=== PATIENT | female | born 1970 | race Caucasian/White ===

== ENCOUNTER 2019-01-13 02:28 | Emergency (ER) ==
[2019-01-13 02:37] VITALS: BP 110/71; TEMP 99.5; BMI 24.8
[2019-01-13] MEDS ORDERED: SOLU-MEDROL 125 MG IVP STA (02:53)
[2019-01-13] MEDS ORDERED: ROCEPHIN 1 GM PREMIX 1 GM in PREMIX 50 ML D5W 1 BAG IV STA (02:53)
[2019-01-13] MEDS ORDERED: XOPENEX 1.25 MG NEB STA (02:54)
[2019-01-13] MEDS ORDERED: DUONEB NEB STA (02:54)
[2019-01-13] MEDS ORDERED: ALBUTEROL 0.042% NEB NEB STA (02:55)
[2019-01-13] MEDS ORDERED: ROCEPHIN 1 GM PREMIX 50 ML IV ONE (03:07)
--- NOTE | 2019-01-13 05:43 | CT ---
EXAM: CT angiogram of the chest with intravenous contrast 01/13/2019. Multi planar reformatted imag es obtained. MIP and three-dimensional reconstructed images provided HISTORY: Dyspnea COMPARISON: None. FINDINGS: The heart size appears within normal limits. No pericardial effusion. The thoracic aorta shows no acute abnormality. There are no pulmonary arterial filling defects to suggest pulmonary embolus. There is suggestion of bronchial wall thickening. Correlate for bronchitis/bronchiolitis. Right mid dle lobe atelectasis and/or pneumonitis. There is no pulmonary consolidation, effusion or pneumothorax. Limited views of the upper abdomen show no acute process. IMPRESSION: 1. No evidence of pulmonary embolus. 2. There is suggestion of diffuse bronchial wall thickening. Correlate for bronchitis/ bronchioliti s 3. Right middle lobe atelectasis and/or pneumonitis. 4. No pulmonary consolidation, effusion or pneumothorax.
--- NOTE | 2019-01-13 05:57 | ED.PDOC ---
General ED Provider: Dr. ALISA CHERRY-ER Chief Complaint: Shortness of Air Stated Complaint: i have ashmta aNd i am wheezing and sob--coughihg up green stuff Time Seen by Physician: 02:40 Mode of Arrival: Walk-In Information Source: Patient Exam Limitations: No limitations Nursing and Triage Documentation Reviewed and Agree: Yes Does patient meet sepsis criteria?: No System Inflammatory Response Syndrome: Not Applicable Sepsis Protocol: For patient's 13 years and over: Temp is 96.8 and below OR 101 and greater Pulse >90 BPM Resp >20/minute Acutely Altered Mental Status Are patient's symptoms suggestive of a new infection, such as: -Pneumonia -Skin, Soft Tissue -Endocarditis -UTI -Bone, Joint Infection -Implantable Device -Acute Abdominal Infection -Wound Infection -Meningitis -Blood Stream Catheter Infection -Unknown Respiratory Complaint Exam - Respiratory Complaint/Exam Onset/Duration: 1 week Symptoms Are: Still present Timing: Constant Initial Severity: Mild Current Severity: Moderate Location: Chest Character: Reports: Productive cough Aggravating: Reports: URI Alleviating: Reports: Bronchodilators Associated Signs and Symptoms: Reports: Wheezing, URI. Denies: Rapid breathing , Dyspnea, Fever, Chills, Chest pain, Pleuritic chest pain, Hemoptysis, Dizziness, Calf pain History of Healthcare-Acquired Pneumonia: No Status Asthmaticus Risk Factors: Reports: None Home Oxygen Use: No Recent Stress Test: No Recent Echo/LV Function: No Current Antibiotic Use: No Current Asthma Medication Use: Yes Respiratory Distress: None Inadequate Respiratory Effort: No Dysphagia Present: No Stridor Present: No JVD Present: No Accessory Muscle Use: No Retractions: Not Present Diminished Breath Sounds: No Prolonged Respiration: Expiratory phase Sinus Tenderness: None Grunting Respirations: No Kussmaul Respirations: No Differential Diagnoses: Asthma, Pneumonia, Bronchitis Review of Systems - Review Of Systems Constitutional: Reports: No symptoms Eyes: Reports: No symptoms Ears, Nose, Mouth, Throat: Reports: No symptoms Respiratory: Reports: Cough, Short of air, Wheezing Cardiac: Reports: No symptoms GI: Reports: Blood streaked bowels : Reports: No symptoms Musculoskeletal: Reports: No symptoms Skin: Reports: No symptoms Neurological: Reports: No symptoms Endocrine: Reports: No symptoms Hematologic/Lymphatic: Reports: No symptoms All Other Systems: Reviewed and Negative Past Medical History - Past Medical History Previously Healthy: Yes Endocrine: Reports: Unknown Cardiovascular: Reports: Unknown Respiratory: Reports: Asthma Hematological: Reports: Unknown Gastrointestinal: Reports: Unknown Genitourinary: Reports: Unknown Neuro/Psych: Reports: Unknown Musculoskeletal: Reports: Unknown Cancer: Reports: Unknown Last Menstrual Period: PT HAS HAD A HYSTERECTOMY 2018 - Surgical History General Surgical History: Reports: Hysterectomy - Family History Family History: Reports: Unknown - Social History Smoking Status: Never smoker Hx Substance Use: No Alcohol Screening: Occasionally - Immunizations Tetanus Shot up to Date: Yes Physical Exam - Physical Exam Appearance: Well-appearing, No pain distress, Well-nourished Eyes: REBECCA, EOMI, Conjunctiva clear ENT: Ears normal, Nose normal, Oropharynx normal Neck: Supple Respiratory: Wheezes Cardiovascular: RRR, Pulses normal, No rub, No murmur GI/: Soft, Nontender, No masses, Bowel sounds normal, No Organomegaly Musculoskeletal: Normal strength, ROM intact, No edema, No calf tenderness Skin: Warm, Dry, Normal color Neurological: Sensation intact, Motor intact, Reflexes intact, Cranial nerves intact, Alert, Oriented Psychiatric: Affect appropriate, Mood appropriate, Anxious Interpretation - Radiology Interpretation Radiology Interpretation By: Radiologist Radiology Results: Positive Exam Interpreted: CT Scan - EKG Interpretation Time of EKG #1: 05:57 Rate: Normal Rhythm: Sinus Ectopy: None [place]: NL ST Segment: Normal Interpretation: nsr Re-Evaluation - Re-Evaluation Time of Re-Evaluation: 05:57 Status: Improved Vital Signs Stable: Yes Pain Level: none Appearance: NAD Lungs: Clear Skin: Warm and Dry Neuro: Alert and Oriented X3 CV: RRR Additional Comments: wheezing rsolved Critical Care Note - Critical Care Note Total Time (mins): 0 Course - Course Hematology/Chemistry: 01/13/19 03:08 01/13/19 03:08 Orders, Labs, Meds: Lab Review 01/13/19 01/13/19 01/13/19 02:52 03:08 03:08 WBC 13.08 H RBC 4.31 Hgb 13.0 Hct 39.4 MCV 91.4 MCH 30.2 MCHC 33.0 RDW Coeff of Jason 13.7 Plt Count 373 Immature Gran % (Auto) 0.3 Neut % (Auto) 49.6 Lymph % (Auto) 29.1 [place] % (Auto) 4.6 Eos % (Auto) 15.6 H Baso % (Auto) 0.8 Immature Gran # (Auto) 0.0 Neut # (Auto) 6.5 Lymph # (Auto) 3.8 H [place] # (Auto) 0.6 Eos # (Auto) 2.0 H Baso # (Auto) 0.1 Puncture Site Lr O2 Saturation 99.0 ABG pH 7.451 H ABG pCO2 30.3 L ABG pO2 116.0 H ABG HCO3 21.1 L ABG Total CO2 22 ABG Base Excess -3 L Efren Test + FiO2 % 21.0 Sodium 141.5 Potassium 4.09 Chloride 105.7 Carbon Dioxide 24.9 Anion Gap 14.99 BUN 12.6 Creatinine 0.90 Estimated GFR (MDRD) 67.00 BUN/Creatinine Ratio 14.00 Glucose 99.2 Calcium 8.89 Total Bilirubin 0.48 AST 21.0 ALT 14.3 Alkaline Phosphatase 78.4 NT-Pro-B Natriuret Pep Total Protein 7.19 Albumin 4.21 Globulin 2.98 Albumin/Globulin Ratio 1.41 01/13/19 03:08 WBC RBC Hgb Hct MCV MCH MCHC RDW Coeff of Jason Plt Count Immature Gran % (Auto) Neut % (Auto) Lymph % (Auto) [place] % (Auto) Eos % (Auto) Baso % (Auto) Immature Gran # (Auto) Neut # (Auto) Lymph # (Auto) [place] # (Auto) Eos # (Auto) Baso # (Auto) Puncture Site O2 Saturation ABG pH ABG pCO2 ABG pO2 ABG HCO3 ABG Total CO2 ABG Base Excess Efren Test FiO2 % Sodium Potassium Chloride Carbon Dioxide Anion Gap BUN Creatinine Estimated GFR (MDRD) BUN/Creatinine Ratio Glucose Calcium Total Bilirubin AST ALT Alkaline Phosphatase NT-Pro-B Natriuret Pep 28.100 Total Protein Albumin Globulin Albumin/Globulin Ratio Orders Category Date Time Status ABG DRAW REQUEST Stat CARDIO 01/13/19 02:53 Completed EKG-(ED ONLY) Stat CARDIO 01/13/19 02:53 Completed NEBULIZER TREATMENT Stat CARDIO 01/13/19 02:54 Completed NPO REMINDER: IMAGING ONCE CARE 01/13/19 02:56 Completed ED MANAGER STRATEGY APPLIED .ONCE EMERGENCY 01/13/19 02:53 Active ED IV/MEDIPORT/POWERPORT .ONCE EMERGENCY 01/13/19 02:53 Active ABG Stat LAB 01/13/19 02:52 Completed CBC W/ AUTO DIFF Stat LAB 01/13/19 03:08 Completed COMPREHENSIVE METABOLIC PANEL Stat LAB 01/13/19 03:08 Completed PRO-BNP [NT-PROBNP] Stat LAB 01/13/19 03:08 Completed 0.9 % Sodium Chloride [Saline Flush] MEDS 01/13/19 02:52 Ordered 1 syr IVF PRN PRN Albuterol Sulfate 0.042% Neb [Albuterol 0.042% Neb] MEDS 01/13/19 02:55 Discontinued 1 vial NEB ONCE STA Ceftriaxone/Dextrose,Iso Osm [Rocephin 1 gm Premix] 1 MEDS 01/13/19 02:53 Discontinued gm Premix 50 ml D5w 1 bag IV ONCE Ceftriaxone/Dextrose,Iso Osm [Rocephin 1 gm Premix] 50 MEDS 01/13/19 03:07 Discontinued ml IV .STK-MED Ipratropium/Albuterol Neb [Duoneb] MEDS 01/13/19 02:54 Discontinued 1 vial NEB ONCE STA Levalbuterol HCl [Xopenex 1.25 mg] MEDS 01/13/19 02:54 Discontinued 1 vial NEB ONCE STA Methylprednisolone Sod Succ/Pf [Solu-Medrol 125 mg] MEDS 01/13/19 02:53 Discontinued 125 [address] IVP ONCE STA CT CHEST PE PROTOCOL Stat RADS 01/13/19 02:55 Completed Medications Generic Name Dose Route Start Last Admin Trade Name Freq PRN Reason Stop Dose Admin Sodium Chloride 1 syr 01/13/19 02:52 01/13/19 03:28 Saline Flush IVF 1 syr PRN PRN Administration To flush IV Discontinued Medications Generic Name Dose Route Start Last Admin Trade Name Freq PRN Reason Stop Dose Admin Albuterol Sulfate 1 vial 01/13/19 02:55 01/13/19 03:43 Albuterol 0.042% Neb NEB 01/13/19 02:56 1 vial ONCE STA Administration Albuterol/Ipratropium 1 vial 01/13/19 02:54 01/13/19 03:20 Duoneb NEB 01/13/19 02:55 1 vial ONCE STA Administration CEFTRIAXONE/DEXTROSE,ISO OSM 1 50 mls @ 75 mls/hr 01/13/19 02:53 01/13/19 03: 31 gm/ Dextrose IV 01/13/19 03:32 75 mls/hr ONCE STA Administration Levalbuterol HCl 1 vial 01/13/19 02:54 01/13/19 03:31 Xopenex 1.25 Mg NEB 01/13/19 02:55 1 vial ONCE STA Administration Methylprednisolone Sodium Succinate 125 mg 01/13/19 02:53 01/13/19 03:26 Solu-Medrol 125 Mg IVP 01/13/19 02:54 125 mg ONCE STA Administration Vital Signs: Temp Pulse Resp BP Pulse Ox 01/13/19 02:30 99.5 F 85 20 110/71 93 L Departure - Departure Time of Disposition: 05:58 Disposition: HOME SELF-CARE Discharge Problem: Asthma Qualifiers: Asthma severity: moderate Asthma persistence: persistent Asthma complication type: with acute exacerbation Qualified Code(s): J45.41 - Moderate persistent asthma with (acute) exacerbation Pneumonia Qualifiers: Pneumonia type: due to unspecified organism Laterality: right Lung location: middle lobe of lung Qualified Code(s): J18.1 - Lobar pneumonia, unspecified organism Instructions: Pneumonitis (ED) Condition: Good Pt referred to PMD for follow-up: No IPMP verified?: No Additional Instructions: go ahead and establish herself with local practioner Allergies/Adverse Reactions: Allergies aspirin Adverse Reaction (Verified 01/13/19 02:37) Swelling Home Medications: Ambulatory Orders Albuterol Sulfate 0.083% Neb [Albuterol 0.083% Neb] 1 vial NEB RTQ4H PRN Albuterol Sulfate [Albuterol Sulfate Hfa] 2 inh IH Q4H PRN 01/13/19 Amoxicillin/Potassium Clav [Augmentin 875-125 mg Tab] 1 tab PO Q12HR #20 tablet 01/13/19 Cetirizine HCl [Zyrtec] 10 mg PO DAILY PRN 01/13/19 Dextroamphetamine/Amphetamine [Adderall 10 mg Tablet] 10 mg PO DAILY 01/13/19 Fluticasone/Salmeterol 500/50 [Advair 500-50 Diskus] 1 puff IH BID #1 puff 01/13 Fluticasone/Salmeterol [Advair 500-50 Diskus] 1 each IH BID 01/13/19 Prednisone 10 mg PO DAILYWM #20 tablet 01/13/19 Transfer Form Completed: No Disposition Discussed With: Patient, Family
== END 2019-01-13 06:13 | disposition home or self-care (01) ==
LOC: ED 02:28
DX: J45.41 Moderate persistent asthma with (acute) exacerbation (principal); J18.1 Lobar pneumonia, unspecified organism; R06.02 Shortness of breath; Z79.899 Other long term (current) drug therapy
CPT/HCPCS: 36415; 80053; 82803; 83880; 85025; 93005; 93010; 94640; 96365; 96375; 99283